=== PATIENT | male | born 1960 | race Caucasian/White ===

== ENCOUNTER 2018-09-27 11:30 | Emergency (ER) | payer SELFPAY ==
[~2018-09-27] VITALS: Ht 175.3 cm; Wt 93.4 kg
--- NOTE | 2018-09-27 11:34 | NUR ---
PT AMBULATES TO BED 8
[2018-09-27 11:37] VITALS: BP 132/98
[2018-09-27] MEDS ORDERED: ALBUTEROL SULFATE/IPRATROPIU 3 ML SOL IH ONE (11:40)
--- NOTE | 2018-09-27 11:40 | NUR ---
PT. BIB W/ c/o productive cough, nasal/chest congestion, throat pain, anterior chest wall pain w cough, bodyaches, and fatigue x 3 days. 9/10 ACHING AND SHARP THROAT PAIN WITH ANTERIOR CHEST WALL PAIN UPON COUGHING. LS:CLEAR. RHINORRHEA. DENIES N/V/D. ER MD MADE AWARE. RR EVEN AND UNLABORED. SYMMETRICAL CHEST RISE AND FALL. WILL CONTINUE TO MONITOR. SAFETY PRECAUTIONS IMPLEMENTED.
[2018-09-27] MEDS ORDERED: cefTRIAXone 1,000 MG in LIDOCAINE 1% ***ER ONLY *** 2.1 ML IM ONE (12:10)
[2018-09-27] MEDS ORDERED: DEXAMETHASONE 10 MG/ML VIAL IM ONE (12:10)
[2018-09-27] MEDS ORDERED: LEVOFLOXACIN 500 MG TAB PO ONE (12:40)
--- NOTE | 2018-09-27 12:45 | NUR ---
PT. RESTING COMFORTABLY IN BED, RR EVEN AND UNLABORED. VSS. WILL CONTINUE TO MONITOR. AT BEDSIDE
[2018-09-27] MEDS ORDERED: cefTRIAXone 1,000 MG VIAL ONE (12:50)
[2018-09-27] MEDS ORDERED: LIDOCAINE MPF 1% - 5 mL VIAL 5 ML ONE (12:51)
[2018-09-27 13:50] VITALS: BP 130/90
--- NOTE | 2018-09-27 13:51 | NUR ---
Patient discharged with v/s stable. Written and verbal after care instructions given and explained. Patient alert, oriented and verbalized understanding of instructions. Ambulatory with steady gait. All questions addressed prior to discharge. ID band removed. Patient advised to follow up with PMD. Rx of LEVAQUIN/PREDNISONE/PROMETHAZINE DM given. Patient educated on indication of medication including possible reaction and side effects. Opportunity to ask questions provided and answered.
== END 2018-09-27 13:51 | disposition home or self-care (01) ==
LOC: MED 11:30
DX: J40 Bronchitis, not specified as acute or chronic (principal); J18.9 Pneumonia, unspecified organism; I10 Essential (primary) hypertension
CPT/HCPCS: 71045; 94640; 96372; 99283; J0696; J1100; J2001; J7620; Q0092

== ENCOUNTER 2018-09-28 17:46 | Emergency (ER) | payer SELFPAY ==
[~2018-09-28] VITALS: Ht 170.2 cm; Wt 72.6 kg
[2018-09-28 18:00] VITALS: BP 141/91
--- NOTE | 2018-09-28 19:37 | NUR ---
PT AMBULATED TO ER BED 05
--- NOTE | 2018-09-28 19:59 | NUR ---
PT BIB SELF C/O COUGH, CHILLS AND FEVER FOR 8 DAYS. RR EVEN AND UNLABORED BL BS CLEAR THROUGHOUT. PT IS LAYING IN BED, RESTLESS, POSITIONED TO COMFORT, ER MD AWARE OF PT STATUS. PT DENIES TAKING OTC MEDS. PMH HTN
--- NOTE | 2018-09-28 20:45 | NUR ---
Dr. Anaya evaluating patient at bedside.
[2018-09-28] MEDS ORDERED: NACL 0.9% 1,000 ML IV ONE (20:54)
[2018-09-28] MEDS ORDERED: KETOROLAC 30 MG/ML VIAL IVP ONE (20:55)
[2018-09-28 21:26] LABS: BASOPHILS % (AUTO) 0.1 % (0.0-2.0); HEMATOCRIT 52.5 % (36-52); HEMOGLOBIN 17.9 g/dL (12.0-18.0); LYMPHOCYTES # (AUTO) 0.8 K/uL (2.0-11.5); LYMPHOCYTES % (AUTO) 10.6 % (20.5-51.1); MEAN CORPUSCULAR HEMOGLOBIN 30 pg (27-31); MEAN CORPUSCULAR HGB CONC 34 g/dL (33-37); MEAN CORPUSCULAR VOLUME 88.2 fL (80-94); MONOCYTES # (AUTO) 0.5 K/uL (0.8-1.0); MONOCYTES % (AUTO) 6.4 % (1.7-9.3); NEUTROPHILS # (AUTO) 6.6 K/uL (1.8-7.7); NEUTROPHILS % (AUTO) 82.9 % (42.2-75.2); PLATELET COUNT (AUTO) 144 K/uL (140-450); RED BLOOD CELL COUNT(AUTO) 5.95 MIL/uL (4.20-6.10); RED CELL DISTRIBUTION WIDTH 14.3 % (11.6-13.7)
[2018-09-28 21:39] LABS: APPEARANCE,URINE CLEAR (CLEAR); BILIRUBIN,URINE NEGATIVE (NEGATIVE); BLOOD, URINE 3+ (NEGATIVE); COLOR,URINE YELLOW (YELLOW); LEUKOCYTE ESTERASE ,URINE NEGATIVE (NEGATIVE); NITRITE, URINE NEGATIVE (NEGATIVE); UGLUCOSE NEGATIVE (NEGATIVE)
[2018-09-28 21:41] LABS: ANION GAP 11.8 (8-16); CARBON DIOXIDE 27.3 mmol/L (21-32); CREATININE 1.4 mg/dL (0.7-1.3); POTASSIUM 4.1 mmol/L (3.5-5.1)
[2018-09-28 21:44] LABS: RBC,URINE >100 /HPF (0-5)
[2018-09-28 21:45] LABS: WBC,URINE 0-5 (RARE) /HPF (0-5)
[2018-09-28 21:45] LABS: ALBUMIN 2.8 g/dL (3.4-5.0); TOTAL BILIRUBIN 1.1 mg/dL (0.0-1.0)
[2018-09-28 21:54] LABS: PROTHROMBIN TIME 10.8 secs (10.8-13.4)
--- NOTE | 2018-09-28 22:00 | NUR ---
pt in bed, vss, states he is feeling better, er md made aware.
[2018-09-28 23:14] VITALS: BP 156/85
== END 2018-09-28 23:13 | disposition home or self-care (01) ==
LOC: MED 17:46
DX: J40 Bronchitis, not specified as acute or chronic (principal); N39.0 Urinary tract infection, site not specified; I10 Essential (primary) hypertension
CPT/HCPCS: 36415; 71046; 80053; 81001; 83605; 83880; 84484; 85025; 85610; 87040; 87086; 87804; 96374; 99284; J1885; J7030